=== PATIENT | female | born 1940 | race Caucasian/White ===

== ENCOUNTER 2018-04-07 11:02 | Observation (INO) ==
[2018-04-07] MEDS ORDERED: PROMETHAZINE 25 MG/1 ML VIAL IM PRN (13:31)
[2018-04-07] MEDS ORDERED: ONDANSETRON 4 MG/2 ML VIAL IV PRN (13:31)
[2018-04-07] MEDS ORDERED: ACETAMINOPHEN 325 MG TABLET PO PRN (13:31)
[2018-04-07] MEDS ORDERED: PANTOPRAZOLE 40 MG TABLET PO SCH (14:00)
[2018-04-07 14:32] LABS: Basophils % 0.5 % (0.0-0.8); Eosinophils % 0.2 % (0.00-10.9); Hematocrit 45.8 VOL% (35.7-47.0); Hemoglobin 14.9 GM/DL (12.0-16.0); Immature Granulocytes % 0.4 %; Immature Granulocytes Absolute 0.03 #; Lymphocytes # 1.7 10*3/uL (1.4-4.0); Lymphocytes % 19.6 % (21.3-54.2); Mean Corpuscular HGB Conc 32.5 GM/DL (32-36); Mean Corpuscular Hemoglobin 29 PG (27-34); Mean Corpuscular Volume 90.5 FL (87-102); Mean Platelet Volume 11.3 FL (9.6-12.0); Monocytes # 0.7 10*3/uL (0.11-0.8); Monocytes % 7.7 % (1.7-12.7); Neutrophils # 6.1 10*3/uL (1.4-7.4); Neutrophils % 71.6 % (38.7-73.9); Platelet Count 247 T/CUMM (130-400); Red Blood Count 5.06 MC/CUMM (3.8-5.5); Red Cell Distribution Width 13.2 % (9.3-17.3); White Blood Count 8.5 T/CUMM (4-12)
[2018-04-07 14:55] LABS: Troponin I < 0.015 NG/ML (0.00-0.045)
[2018-04-07 14:59] LABS: Albumin 3.2 G/DL (3.4-5.0); Bilirubin,Total 0.9 MG/DL (0.2-1.0); Calcium 8.1 MG/DL (8.5-10.1); Osmolality,Calculated 284.1 MOS/KG (273-304); Potassium 3.5 MMOL/L (3.5-5.1); Thyroid Stimulating Hormone 0.723 uIU/ml (0.358-3.74); Total Protein 6.1 G/DL (6.4-8.3)
[2018-04-07] MEDS: SODIUM CHLORIDE 0.9% 1,000 ML IV SCH (15:20)
[2018-04-07 15:49] LABS: ABG Base Excess 5.6 MMOL/L (-2.5-2.5); ABG HCO3 30.7 MMOL/L (20-26); ABG Oxygen Saturation 92.9 % (95-100); ABG PCO2 46.2 MM HG (35-48); ABG PH 7.441 (7.35-7.45); ABG PO2 65.3 MM HG (80-95); ABG TCO2 32.2 MMOL/L (23-27)
[2018-04-07] MEDS ORDERED: ROSUVASTATIN 10 MG TABLET PO SCH (21:00)
[2018-04-07] MEDS: APIXABAN 5 MG TABLET PO SCH (22:01)
[2018-04-08] MEDS: SODIUM CHLORIDE 0.9% 1,000 ML IV SCH ×3 (00:20→09:59)
[2018-04-08 04:08] LABS: Risk Ratio 2.28; VLDL CHOLESTEROL 17.2 MG/DL
[2018-04-08 08:19] VITALS: BP 137/69
[2018-04-08] MEDS ORDERED: LOSARTAN 50 MG TABLET PO SCH (09:00)
[2018-04-08] MEDS ORDERED: AMIODARONE 200 MG TABLET PO SCH (09:00)
[2018-04-08] MEDS ORDERED: PANTOPRAZOLE 40 MG TABLET PO SCH (09:00)
[2018-04-08] MEDS ORDERED: CHOLECALCIFEROL 1,000 UNIT TABLET PO SCH (09:00)
[2018-04-08] MEDS ORDERED: POTASSIUM CHLORIDE 10 MEQ TABLET PO SCH (09:00)
[2018-04-08] MEDS ORDERED: ISOSORBIDE MONONITRATE 30 MG TABLET PO SCH (09:00)
[2018-04-08] MEDS: APIXABAN 5 MG TABLET PO SCH (10:00)
== END 2018-04-08 11:15 | disposition home or self-care (01) ==
LOC: N.TELES 12:51 → SUATTDRO 12:51 → INTOOBSV 12:51
PROVIDERS: ADMIT Internal Medicine; ATTEND Internal Medicine Cardiovascular Disease